=== PATIENT | female | born 1975 | race Caucasian/White ===

== ENCOUNTER 2022-01-28 11:26 | Outpatient (REF) | payer BC, SELFPAY ==
[2022-01-28 13:42] LABS: MANUAL DIFF FLAG NO
[2022-01-28 13:50] LABS: Basophils Percent Auto 0.4 % (0-2); Eosinophils Percent Auto 0.5 % (0-4); Hematocrit 41.9 % (37.0-47.0); Hemoglobin 13.8 g/dl (12.0-16.0); Imm Gran Abs Auto 0.02 X10*3/uL (0.00-0.03); Imm Gran Pct Auto 0.3 % (0.0-0.4); Lymphocytes Absolute Auto 3.3 X10*3/uL (1.2-4.9); Lymphocytes Percent Auto 44.4 % (20-40); Mean Corpuscular HGB Conc 32.9 g/dl (31.0-35.0); Mean Corpuscular Hemoglobin 31.5 pg (27.0-33.0); Mean Corpuscular Volume 95.7 fL (80.0-98.0); Mean Platelet Volume 11.4 fL (9.4-12.3); Monocytes Absolute Auto 0.8 X10*3/uL (0.1-1.2); Monocytes Percent Auto 10.3 % (2-11); Neutrophils Absolute Auto 3.3 x10*3/uL (2.0-8.3); Neutrophils Percent Auto 44.1 % (45-73); Platelet Count 319 X10*3/uL (160-400); Red Blood Count 4.38 X10*6/uL (4.20-5.50); Red Cell Distribution Width 12.9 % (11.0-16.0); White Blood Count 7.4 X10*3/uL (4.8-10.8)
[2022-01-28 14:15] LABS: Alanine Aminotransferase 19 U/L (0-31); Albumin Level 4.2 g/dL (3.5-5.0); Alkaline Phosphatase 44 U/L (39-117); Anion Gap 14 (12-20); Aspartate Amino Transferase 17 U/L (5-31); Bilirubin Total < 0.2 mg/dL (0.0-1.0); Blood Urea Nitrogen 16 mg/dL (9-16); Carbon Dioxide 25 mmol/L (22-29); Chloride 106 mmol/L (96-108); Cholesterol 211 mg/dL; Estimated Glomerular Filt Rate > 60; Glucose Fasting 84 mg/dL (60-99); HDL Cholesterol 44 mg/dL; LDL Cholesterol Calculated 152 mg/dl; Potassium 4.6 mmol/L (3.3-5.1); Sodium 140 mmol/L (135-145); Total Protein 6.6 g/dL (6.5-8.0); Triglycerides 77 mg/dL
[2022-01-28 14:23] LABS: Thyroid Stimulating Hormone 0.41 uIU/mL (0.32-4.0)
== END 2022-01-28 11:27 | disposition home or self-care (01) ==
LOC: HO.10HDL 11:26
PROVIDERS: Visit Provider Internal Medicine
DX: Z00.00 Encounter for general adult medical examination without abnormal findings (principal); G43.109 Migraine with aura, not intractable, without status migrainosus; J45.909 Unspecified asthma, uncomplicated; K58.0 Irritable bowel syndrome with diarrhea; Z72.0 Tobacco use; Z90.710 Acquired absence of both cervix and uterus
CPT/HCPCS: 36415; 80053; 80061; 84443; 85025

== ENCOUNTER 2022-01-29 13:12 | Outpatient (REF) | payer BC, SELFPAY | END 2022-01-29 13:13 | disposition home or self-care (01) | LOC: HO.10HDLNP 13:12 | PROVIDERS: Visit Provider Internal Medicine | DX: Z00.00 Encounter for general adult medical examination without abnormal findings (principal); G43.109 Migraine with aura, not intractable, without status migrainosus; J45.909 Unspecified asthma, uncomplicated; K58.0 Irritable bowel syndrome with diarrhea; Z72.0 Tobacco use; Z90.710 Acquired absence of both cervix and uterus | CPT/HCPCS: 87338 ==

== ENCOUNTER 2022-04-08 09:49 | Day surgery (SDC) | payer BC, SELFPAY ==
--- NOTE | 2022-04-07 12:02 | P.CONAN_ITS ---
Documented by User: Ellen Ta NP 04/07/22 12:11 HPI - Anesthesia Eval Consult details Narrative: 46yo F for Upper Endoscopy and Colonoscopy [facility] Past Medical History Medical History Asthma Chronic bronchitis IBS (irritable bowel syndrome) Migraines Smoker Surgical History Surgical History (Updated 04/08/22 @ 10:02 by Alondra Blank) H/O endoscopy History of partial hysterectomy (~2015) S/P right knee arthroscopy Social History Social History Patient Tobacco Use Status: Current everyday Tobacco user Cigarette Packs Per Day: 1 Cigarettes Per Day: 20.0 Years Smoked: 30 Smoked in Last 30 Days: Yes Use of substances other than those prescribed or required for medical reasons: No Are you DNR?: No Advance Directives: No Advance Directives Information Provided: Yes Meds Allergies Allergy/AdvReac Type Severity Reaction Status Date / Time mushroom Allergy Unknown Unknown Verified 04/08/22 09:57 Penicillins Allergy Unknown Vomiting Verified 04/08/22 09:57 zolmitriptan [From Zomig] Allergy Unknown Anaphylaxis Verified 04/08/22 09:57 Home Medications Medication Instructions Recorded Confirmed Last Taken Type albuterol sulfate 1 puff inhalation Q4-5H PRN 04/07/22 04/08/22 Unknown History Wheezing omeprazole 20 mg capsule,delayed 40 mg PO BID 04/07/22 04/08/22 Unknown History release Exam Exam Date and Time: April 07, 2022 1202 Pertinent Lab Results Pertinent Lab Results: Laboratory Tests 01/28/22 01/28/22 11:40 11:40 WBC 7.4 Hgb 13.8 Hct 41.9 Plt Count 319 Sodium 140 Potassium 4.6 Chloride 106 Carbon Dioxide 25 BUN 16 Creatinine 0.83 Assessment and Plan Assessment Anesthesia Assessment: Chart Reviewed Documented by User: Helen Bejarano MD 04/08/22 11:23 [facility] Past Medical History Medical History Asthma Chronic bronchitis IBS (irritable bowel syndrome) Migraines Smoker Family History Family history of problems with anesthesia: No Surgical History Surgical History (Updated 04/08/22 @ 10:02 by Alondra Medina H/O endoscopy History of partial hysterectomy (~2015) S/P right knee arthroscopy History of Problems with Anesthesia: No Social History Social History Patient Tobacco Use Status: Current everyday Tobacco user Cigarette Packs Per Day: 1 Cigarettes Per Day: 20.0 Years Smoked: 30 Smoked in Last 30 Days: Yes Use of substances other than those prescribed or required for medical reasons: No Are you DNR?: No Advance Directives: No Advance Directives Information Provided: Yes Meds Allergies Allergy/AdvReac Type Severity Reaction Status Date / Time mushroom Allergy Unknown Unknown Verified 04/08/22 09:57 Penicillins Allergy Unknown Vomiting Verified 04/08/22 09:57 zolmitriptan [From Zomig] Allergy Unknown Anaphylaxis Verified 04/08/22 09:57 Home Medications Medication Instructions Recorded Confirmed Last Taken Type albuterol sulfate 1 puff inhalation Q4-5H PRN 04/07/22 04/08/22 Unknown History Wheezing omeprazole 20 mg capsule,delayed 40 mg PO BID 04/07/22 04/08/22 Unknown History release Exam Airway Mallampati Class: II TM Dist: >3cm Neck ROM: Full Denture: Upper Partial: Lower Loose/Missing/Broken Teeth: No Heart: rrr Lungs: cta Assessment and Plan Assessment Anesthesia Assessment: Anesthesia Plan Discussed Final Anesthetic Review Family History of Problems with Anesthesia: No History of Problems with Anesthesia: No NPO: Yes ASA Class: II Final Preanesthetic Review: No Changes in Pt Med Stat Patient Risk: Low Procedure Risk: Low Assessment/Block/Sedation in SS: Assess/Block/Sedation-SS Anesthetic Plan Anesthetic Plan: MAC: Disposition: Standard PACU
[2022-04-08 10:03] VITALS: BMI 22.8
[2022-04-08 10:08] VITALS: BP 107/64; PULSE 89; RESP 16; TEMP 36.7; O2SAT 98
[2022-04-08] MEDS: Lactated Ringers 1,000 ML 100 ML IVCONT (10:20)
--- NOTE | 2022-04-08 11:15 | MHC.SHP ---
Pre-Procedural Eval Section A Date of Service: 04/08/22 The patient is an INPATIENT: No Changes since office visit: No Cold of Flu in the past 2 weeks, No New Medical Problems, No Changes in Medication and No Patient answered all questions The History & Physical has been completed within 30 days and I have reviewed it.: Yes Section B Chief Complaint: Nausea with vomiting,Change in bowel habit Allergies: Allergies Allergy/AdvReac Type Severity Reaction Status Date / Time mushroom Allergy Unknown Unknown Verified 04/08/22 09:57 Penicillins Allergy Unknown Vomiting Verified 04/08/22 09:57 zolmitriptan [From Zomig] Allergy Unknown Anaphylaxis Verified 04/08/22 09:57 Plan I have reviewed the history and physical and performed a pertinent physical examination on my patient. No changes have occurred unless specified.
--- NOTE | 2022-04-08 12:23 | PM.OP ---
Brief Operative Note Date of Service: 04/08/22 Pre-op diagnosis: n/v, change in bowels Surgeon: Dennis Calloway Anesthesia: MAC Was an Horticulture Instructor used for this Procedure?: No Estimated blood loss (mL): 2 Pathology: other Condition: stable Disposition: PACU
[2022-04-08 12:28] VITALS: BP 99/61; PULSE 75; RESP 18; TEMP 36.2; O2SAT 97
[2022-04-08 12:43] VITALS: BP 99/59; PULSE 74; RESP 18; TEMP 36.2; O2SAT 98
--- NOTE | 2022-04-08 22:45 | OP_ITS ---
SURGEON: Dennis Calloway MD INDICATIONS: Nausea and vomiting, change in bowel habits. PREOPERATIVE DIAGNOSIS: POSTOPERATIVE DIAGNOSIS: PROCEDURE PERFORMED: Upper endoscopy with biopsy, colonoscopy to the terminal ileum with biopsy, and snare polypectomy. ESTIMATED BLOOD LOSS: COMPLICATIONS: ANESTHESIA: Monitored anesthesia care. ASSISTANTS: SPECIMENS: DESCRIPTION OF PROCEDURE: Date: 04/08/22. History and physical performed. The risks and benefits of the procedure were explained to the patient. Informed consent was obtained. The patient was placed in the left lateral decubitus position. The Olympus video gastroscope was introduced into the esophagus, stomach, and duodenum. Examination was performed. The scope was removed. She was repositioned for colonoscopy. Digital rectal exam was performed and was found to be normal. The Olympus pediatric videocolonoscope was introduced into the rectum and advanced to the cecum without difficulty. The cecum was identified by transillumination, palpation, and identification of ileocecal valve. Examination was performed. The scope was removed. She tolerated both procedures well, was returned to recovery room in stable condition. FINDINGS: Upper endoscopy: Esophagus; the esophagus was normal. Biopsies were obtained from the EG junction. Stomach; the stomach was normal. Biopsies were obtained from the antrum to evaluate for H pylori. Duodenum; the bulb and second portion were normal. Biopsies were obtained from the second portion. Colonoscopy: The terminal ileum was normal. There were multiple colonic polyps present, which were removed with a snare. These were located at 60 cm, 45 cm and in the rectum. The largest was pedunculated at 45 cm measuring approximately 10 mm. A 4th polyp in the cecum was removed with a snare, but could not be recovered due to technical reasons. Random sigmoid biopsies were obtained to evaluate for microscopic colitis. Retroflexed examination showed moderate-sized internal hemorrhoids. There was moderate diverticulosis scattered throughout the colon. IMPRESSION: 1. Normal upper endoscopy. 2. Colon polyps. RECOMMENDATION: Follow up with the biopsy results. MD ISAURO Lobo/VIKTOR / [id number] MTDD
== END 2022-04-08 13:36 | disposition home or self-care (01) ==
PROVIDERS: PCP Internal Medicine; Visit Provider Internal Medicine Gastroenterology
PROC: (CPT 45385; principal; 2022-04-08 10:50)
DX: R19.4 Change in bowel habit (principal); D12.6 Benign neoplasm of colon, unspecified; K62.1 Rectal polyp; R11.2 Nausea with vomiting, unspecified; K29.70 Gastritis, unspecified, without bleeding; B96.81 Helicobacter pylori [H. pylori] as the cause of diseases classified elsewhere; J45.909 Unspecified asthma, uncomplicated; F17.210 Nicotine dependence, cigarettes, uncomplicated; Z79.899 Other long term (current) drug therapy; Z88.0 Allergy status to penicillin; Z88.8 Allergy status to other drugs, medicaments and biological substances
CPT/HCPCS: 45385; 45380; 43239; 88305; 88342; J0131

== ENCOUNTER 2022-04-17 06:43 | Outpatient (REF) | payer BC, SELFPAY ==
[2022-04-17 07:04] LABS: Hematocrit 43.8 % (37.0-47.0); Hemoglobin 14.4 g/dl (12.0-16.0); Mean Corpuscular HGB Conc 32.9 g/dl (31.0-35.0); Mean Corpuscular Hemoglobin 31.3 pg (27.0-33.0); Mean Corpuscular Volume 95.2 fL (80.0-98.0); Mean Platelet Volume 11.5 fL (9.4-12.3); Platelet Count 268 X10*3/uL (160-400); Red Cell Distribution Width 12.5 % (11.0-16.0); White Blood Count 7.6 X10*3/uL (4.8-10.8)
[2022-04-17 07:42] LABS: Erythrocyte Sedimentation Rate 2 MM/HR (0-20)
[2022-04-17 07:49] LABS: Alanine Aminotransferase 17 U/L (0-31); Albumin Level 4.3 g/dL (3.5-5.0); Alkaline Phosphatase 44 U/L (39-117); Aspartate Amino Transferase 19 U/L (5-31); Bilirubin Direct < 0.2 mg/dL (0.0-0.5); Bilirubin Total 0.2 mg/dL (0.0-1.0); C Reactive Protein < 0.10 mg/dL (< or = 0.50); Lipase 23 U/L (8-78)
== END 2022-04-17 06:44 | disposition home or self-care (01) ==
LOC: HO.LAB 06:43
PROVIDERS: PCP Internal Medicine; Visit Provider Internal Medicine Gastroenterology
DX: R10.13 Epigastric pain (principal)
CPT/HCPCS: 36415; 80076; 83690; 85027; 85652; 86140

== ENCOUNTER 2022-05-08 11:54 | Outpatient (REF) | payer BC, SELFPAY | END 2022-05-08 11:55 | disposition home or self-care (01) | LOC: HO.LNP 11:54 | PROVIDERS: Visit Provider Internal Medicine Gastroenterology | DX: A04.8 Other specified bacterial intestinal infections (principal) | CPT/HCPCS: 87338 ==

== ENCOUNTER 2022-05-27 08:44 | Outpatient (REF) | payer BC, SELFPAY ==
--- NOTE | ~2022-05-27 | CT_ITS ---
EXAMINATION: CT ABDOMEN AND PELVIS WITH CONTRAST CLINICAL INFORMATION: Pain COMPARISON: None TECHNIQUE: Multidetector volumetric images were obtained from the superior aspect of the liver through the pubic symphysis following administration 85 mL of Omnipaque 350 intravenous contrast. Sagittal and coronal reformatted images were obtained on the technologist's workstation. Oral contrast: [address] examination was performed using dose optimization techniques as appropriate, variously including the following: *Automated exposure control *Adjustment of mA and/or kV according to patient size (this includes techniques or standardized protocols for targeted exams where dose is matched to indication/reason for exam; i.e. extremities or head) *Use of iterative reconstruction technique DLP: 320 mGy-cm FINDINGS: LUNG BASES: The lung bases are clear. The heart size is normal. LIVER, GALLBLADDER, AND BILIARY TREE: The liver is normal in size, shape, and attenuation. There is a small hypodense 9 mm and a 4 mm lesion left hepatic lobe with the larger lesion measuring 20 Hounsfield units. The gallbladder is unremarkable with no evidence of radiopaque gallstones, gallbladder wall thickening, or obvious pericholecystic inflammatory changes. PANCREAS: Unremarkable. SPLEEN: Unremarkable. ADRENAL GLANDS: Unremarkable. KIDNEYS AND URETERS: The kidneys are normal in size, shape, and attenuation. No hydronephrosis, hydroureter, or calculi seen. No perinephric stranding. There are several small nonenhancing hypodense lesions largest measuring 6 mm in the midpole right kidney probable cyst. BLADDER: Unremarkable. GASTROINTESTINAL TRACT: There is stool, oral contrast and diverticuli scattered throughout the colon without distention. The small bowel loops are normal caliber. Appendix is normal caliber. No inflammatory process seen in the abdomen or pelvis. ABDOMINAL WALL: There is a small supraumbilical paramidline abdominal wall hernia containing fat. The neck is 2.0 cm wide. LYMPH NODES: Normal. VASCULAR: Unremarkable. PELVIC VISCERA: The uterus is not visualized, likely surgically absent. There is a small 9 mm cyst left ovary, axial image 65/3. OSSEOUS STRUCTURES: No aggressive lytic or sclerotic process seen. CT/CT abdomen pelvis w IV con IMPRESSION: 1. No acute intra-abdominal process seen. 2. Probable left hepatic and right renal cysts. 3. Mild constipation with scattered diverticuli. Fleischner guidelines were followed.
[2022-05-27] MEDS: iohexoL 350 MG/ML 75 ML INFUS..BTL 85 ML IV (11:43)
[2022-05-27] MEDS: Barium Sulfate Oral (Mocha) 450 ML ORAL.SUSP PO (11:44)
== END 2022-05-27 08:45 | disposition home or self-care (01) ==
LOC: HO.CT 08:44
PROVIDERS: PCP Internal Medicine; Visit Provider Internal Medicine Gastroenterology
DX: R10.84 Generalized abdominal pain (principal)
CPT/HCPCS: 74177; Q9967